=== PATIENT | male | born 1960 | race Caucasian/White ===

== ENCOUNTER → 2017-05-08 | Outpatient (CLI) | payer MEDICARE, OTHER ==
--- NOTE | 2017-05-08 09:23 | US ---
EXAMINATION TYPE: US carotid duplex BILAT DATE OF EXAM: 05/08/2017 COMPARISON: NONE CLINICAL HISTORY: R55 syncope. EXAM MEASUREMENTS: RIGHT: Peak Systolic Velocity (PSV) cm/sec ----- Right CCA: 79.1 ----- Right ICA: 93.0 ----- Right ECA: 66.4 ICA/CCA ratio: 1.2 RIGHT: End Diastole cm/sec ----- Right CCA: 18.4 ----- Right ICA: 29.8 ----- Right ECA: 9.6 LEFT: Peak Systolic Velocity (PSV) cm/sec ----- Left CCA: 64.3 ----- Left ICA: 108.6 ----- Left ECA: 77.8 ICA/CCA ratio: 1.7 LEFT: End Diastole cm/sec ----- Left CCA: 15.0 ----- Left ICA: 39.2 ----- Left ECA: 9.5 VERTEBRALS (direction of flow): Right Vertebral: Antegrade Left Vertebral: Antegrade Rhythm: Normal Minimal amount of plaque visualized. No elevated velocities, no significant stenosis IMPRESSION: 1. Minimal plaquing without significant flow-limiting stenosis. Criteria for Assigning % of Stenosis / Diameter reduction (Estimation based on the indirect measurements of the internal carotid artery velocities (ICA PSV). 1. Normal (no stenosis)=ICA PSV < 125 cm/s: ratio < 2.0: ICA EDV<40 cm/s. 2. Less than 50% stenosis=ICA PSV < 125 cm/s: ratio < 2.0: ICA EDV<40 cm/s. 3. 50 to 69% stenosis=ICA PSV of 125 to 230 cm/s: ration 2.0 ? 4.0: ICA EDV 40-100 cm/s. 4. Greater than 70% stenosis to near occlusion= ICA PSV > 230 cm/s: ratio > 4.0: ICA EDV > 100 cm/s. 5. Near occlusion= ICA PSV velocities may be low or undetectable: variable ratio and ICA EDV. 6. Total occlusion=unable to detect flow.
--- NOTE | 2017-05-08 09:30 | CT ---
EXAMINATION TYPE: CT brain wo con DATE OF EXAM: 05/08/2017 HISTORY: Syncope CT DLP: 1121 mGycm. Automated Exposure Control for Dose Reduction was Utilized. TECHNIQUE: CT scan of the head is performed without contrast. COMPARISON: None. FINDINGS: There is no acute intracranial hemorrhage or midline shift identified. Ventricles and sul ci are normal in size. Galan-white matter differentiation is fairly well preserved. There is completel y opacified left sphenoid sinus. There is 1 cm mucous retention cyst or polyp in superior portion of left maxillary sinus. The globes are intact bilaterally. No suspicious opacification mastoid air ce lls is seen. IMPRESSION: No acute intracranial hemorrhage or midline shift. Possible left sphenoid acute sinusiti s, correlate clinically.
== END | disposition home or self-care (01) ==
LOC: RADCTMAIN 07:57 → EEVIPCON 08:00
PROVIDERS: ATTEND Family Medicine
DX: I65.23 Occlusion and stenosis of bilateral carotid arteries (principal); R55 Syncope and collapse
CPT/HCPCS: 70450; 93880

== ENCOUNTER 2021-04-17 07:44 | Day surgery (SDC) | payer MEDICARE, OTHER ==
[2021-03-29 13:46] VITALS: BMI 21.7
[~2021-04-17 07:44] MED LIST: DEXAMETHASONE SOD PHOSPHATE 4 MG/ML 1 ML VIAL IV ONE; HYDROmorphone 0.5 MG/0.5 ML SYRINGE IVP PRN; LACTATED RINGERS 1,000 ML IV SCH; LIDOCAINE 1% (10MG/ML) FOR IV START INTRADERMA PRN; ONDANSETRON 4 MG/2 ML VIAL IVP ONE
[2021-04-17 08:17] VITALS: TEMP 97.9
[2021-04-17] MEDS ORDERED: PROPOFOL 10 MG/ML 20 ML VIAL IV ONE (09:22)
[2021-04-17] MEDS ORDERED: GLYCOPYRROLATE 0.2 MG/ML 2 ML VIAL ONE (09:22)
[2021-04-17] MEDS ORDERED: LIDOCAINE 1% INJ 10MG/ML (20 ML MDV) ONE (09:22)
--- NOTE | 2021-04-17 09:26 | P.GSHP ---
History of Present Illness H&P Date: 04/17/21 Chief Complaint: Colon cancer screening Patient here for colonoscopy. Patient without complaints. Patient is learning disabled. Most of history obtained from chart. Past Medical History Past Medical History: No Reported History Additional Past Medical History / Comment(s): Enlarged heart, due to have stress test and holter monitor. Autistic. History of Any Multi-Drug Resistant Organisms: None Reported Past Surgical History: No Surgical Hx Reported Additional Past Surgical History / Comment(s): Colonoscopy. Past Anesthesia/Blood Transfusion Reactions: No Reported Reaction Smoking Status: Never smoker - Past Family History Father Family Medical History: Renal Disease Additional Family Medical History / Comment(s): Renal Failure. Mother Family Medical History: Congestive Heart Failure (CHF) Medications and Allergies Home Medications Medication Instructions Recorded Confirmed Type Aspirin [Adult Low Dose Aspirin EC] 81 mg PO [facility] 03/29/21 04/17/21 History Bumetanide 2 mg PO [facility] 03/29/21 04/17/21 History Calcium Citrate/Vitamin D3 2 each PO [facility] 03/29/21 04/17/21 History [Citracal + D Maximum Caplet] Cetirizine HCl 10 mg PO 03/29/21 04/17/21 History Cholecalciferol [Vitamin D3 (25 25 mcg PO [facility] 03/29/21 04/17/21 History Mcg = 1000 Iu)] Omeprazole 20 mg PO [facility] 03/29/21 04/17/21 History Potassium Chloride ER [K-Dur 20] 20 meq PO [facility] 03/29/21 04/17/21 History QUEtiapine [SEROquel] 200 mg PO 03/29/21 04/17/21 History Allergies Allergy/AdvReac Type Severity Reaction Status Date / Time No Known Allergies Allergy Verified 04/17/21 08:07 Surgical - Exam Vital Signs Temp Pulse Resp BP Pulse Ox 97.9 F 59 L 18 149/78 99 04/17/21 08:16 04/17/21 08:16 04/17/21 08:16 04/17/21 08:16 04/17/21 08:16 Physical exam: General: Well-developed, well-nourished HEENT: Normocephalic, sclerae nonicteric Abdomen: Nontender, nondistended Extremities: No edema Neuro: Alert and oriented Assessment and Plan (1) Colon cancer screening Narrative/Plan: Will proceed with colonoscopy Current Visit: Yes Status: Acute Code(s): Z12.11 - ENCOUNTER FOR SCREENING FOR MALIGNANT NEOPLASM OF COLON SNOMED Code(s): 939584646
--- NOTE | 2021-04-17 09:46 | P.PCN ---
Date of Procedure: 04/17/21 Procedure(s) Performed: PREOPERATIVE DIAGNOSIS: Colon cancer screening POSTOPERATIVE DIAGNOSIS: Diverticulosis PROCEDURE: Colonoscopy ANESTHESIA: MAC SURGEON: Augustine Nava M.D. SPECIMENS: None ENDOSCOPIC PROCEDURE: The patient was placed on the endoscopy table in the left decubitus position. The Olympus colonoscope was inserted into the anus and passed under direct visualization to the base of the cecum. The appendiceal orifice was visualized. From that point the scope was slowly withdrawn inspe cting all surfaces carefully. There were no neoplastic inflammatory or polypoid lesions throughout the cecum, ascending, transverse, descending, sigmoid and rectum. There was moderate scattered diverticulosis noted. Digital rectal examination was normal. The patient was taken to the recovery room in stable condition per anesthesia guidelines. RECOMMENDATIONS: Resume diet. Follow colonoscopy in 10 years.
[2021-04-17 10:14] VITALS: BP 123/78; PULSE 67; RESP 18
== END 2021-04-17 10:29 | disposition home or self-care (01) ==
LOC: ORWHC2ENDO 07:44
PROVIDERS: ATTEND Surgery
DX: Z12.11 Encounter for screening for malignant neoplasm of colon (principal); F84.0 Autistic disorder; I10 Essential (primary) hypertension; K21.9 Gastro-esophageal reflux disease without esophagitis; Z79.82 Long term (current) use of aspirin; Z79.899 Other long term (current) drug therapy; Z82.49 Family history of ischemic heart disease and other diseases of the circulatory system
CPT/HCPCS: G0121; J2001; J2704

== ENCOUNTER 2023-08-13 18:31 | Emergency (ER) | payer MEDICARE, OTHER ==
[2023-08-13 19:13] VITALS: BP 98/58; PULSE 68; RESP 18; TEMP 101.4
[2023-08-13 19:52] LABS: Appearance,Urine Cloudy (Clear); Bacteria,Urine Many /hpf; Bilirubin,Urine Negative (Negative); Blood,Urine Moderate (Negative); Color,Urine Light Yellow; Glucose,Urine (UA) Negative (Negative); Ketones,Urine Negative (Negative); Leukocyte Esterase,Urine Large (Negative); Mucus,Urine Occasional /hpf; Nitrite,Urine Negative (Negative); Protein,Urine 1+ (Negative); RBC,Urine 12 /hpf (0-5); Specific Gravity,Urine 1.016 (1.001-1.035); Squamous Epithelial Cell,Urine 1 /hpf (0-4); Urobilinogen,Urine <2.0 mg/dL (<2.0); WBC,Urine >182 /hpf (0-5)
== END 2023-08-13 20:20 | disposition left against medical advice (07) ==
LOC: EC 18:31
DX: R46.89 Other symptoms and signs involving appearance and behavior (principal); Z53.21 Procedure and treatment not carried out due to patient leaving prior to being seen by health care provider
CPT/HCPCS: 81001; 99499

== ENCOUNTER 2024-02-10 20:42 | Inpatient (IN) | payer MEDICARE, OTHER ==
--- NOTE | 2024-02-10 21:04 | ED ---
Altered Mental Status HPI - General Chief Complaint: Altered Mental Status Stated Complaint: Fall,Sweating Time Seen by Provider: 02/10/24 21:01 Source: family Mode of arrival: ambulatory Limitations: altered mental status - History of Present Illness Initial Comments: This patient is a 63-year-old man who is brought in to have evaluation for altered mental status. The patient reportedly has some developmental delay and lives with cousin who does help with history. Family heard a noise and when they checked found he had fall in bathroom. Unsure if lost consciousness. Patient reportedly last known well before 8 PM. The patient himself is tending to babble currently but when asked focused questions is able to answer. He denies having pains. He denies dyspnea. MD Complaint: altered mental status Onset/Timin -: hour(s) Severity: moderate Consistency of Symptoms: constant - Related Data Home Medications Medication Instructions Recorded Confirmed Aspirin [Adult Low Dose Aspirin EC] 81 mg PO QAM 03/29/21 02/10/24 Calcium Citrate/Vitamin D3 2 each PO M 03/29/21 02/10/24 [Citracal + D Maximum Caplet] Cetirizine HCl 10 mg PO HS 03/29/21 02/10/24 Cholecalciferol [Vitamin D3 (25 10 mcg PO QAM 03/29/21 02/10/24 Mcg = 1000 Iu)] Omeprazole 20 mg PO QAM 03/29/21 02/10/24 Potassium Chloride ER [K-Dur 20] 20 meq PO QAM 03/29/21 02/10/24 QUEtiapine [SEROquel] 300 mg PO HS 03/29/21 02/10/24 Citalopram Hydrobromide 20 mg PO QAM 02/10/24 02/10/24 [Citalopram HBr] Empagliflozin [Jardiance] 10 mg PO QAM 02/10/24 02/10/24 Furosemide [Lasix] 40 mg PO DAILY 02/10/24 02/10/24 Nitroglycerin Sl Tabs [Nitrostat] 0.4 mg SUBLINGUAL Q5M PRN 02/10/24 02/10/24 Allergies Allergy/AdvReac Type Severity Reaction Status Date / Time No Known Allergies Allergy Verified 02/10/24 20:51 Review of Systems ROS Statement: Those systems with pertinent positive or pertinent negative responses have been documented in the HPI. ROS Other: All systems not noted in ROS Statement are negative. Limitations: ROS unobtainable due to patients medical condition Constitutional: Denies: fever Respiratory: Denies: cough Cardiovascular: Denies: chest pain Gastrointestinal: Denies: abdominal pain, vomiting Musculoskeletal: Denies: back pain Neurological: Denies: headache Past Medical History Past Medical History: Myocardial Infarction ([place]) Additional Past Medical History / Comment(s): swelling arina legs,cousin states "has weak heart working at 30%-35%",increased fatigue, Autistic-"will always state he is feeling fine", cousin Ankur is caregiver,lives with Ankur Last Myocardial Infarction Date:: unk History of Any Multi-Drug Resistant Organisms: None Reported Past Surgical History: No Surgical Hx Reported Additional Past Surgical History / Comment(s): Colonoscopy. Past Anesthesia/Blood Transfusion Reactions: No Reported Reaction Past Psychological History: Anxiety Smoking Status: Never smoker Past Alcohol Use History: None Reported Past Drug Use History: None Reported - Past Family History Father Family Medical History: Diabetes Mellitus, Renal Disease Additional Family Medical History / Comment(s): Renal Failure. Mother Family Medical History: Congestive Heart Failure (CHF) General Exam Limitations: altered mental status General appearance: alert, in no apparent distress Head exam: Present: atraumatic, normocephalic Eye exam: Present: normal appearance, PERRL, EOMI. Absent: scleral icterus, conjunctival injection, nystagmus ENT exam: Present: mucous membranes dry Neck exam: Present: normal inspection, full ROM. Absent: tenderness, meningismus Respiratory exam: Present: normal lung sounds bilaterally. Absent: respiratory distress, wheezes, rales, rhonchi, stridor, accessory muscle use Cardiovascular Exam: Present: regular rate, normal rhythm, normal heart sounds. Absent: systolic murmur, diastolic murmur, rubs, gallop GI/Abdominal exam: Present: soft. Absent: distended, tenderness, guarding, rebound, rigid, mass Extremities exam: Present: normal inspection, normal capillary refill. Absent: pedal edema, calf tenderness Back exam: Present: normal inspection. Absent: CVA tenderness (R), CVA tenderness (L) Neurological exam: Present: alert, CN II-XII intact. Absent: motor sensory deficit Expanded Neurological exam: Present: protecting the airway. Absent: ataxia, tremor Speech: Present: fluid speech Cranial nerves: EOM's Intact: Normal, Tongue Deviation: Normal Sensory exam: Upper Extremity Light Touch: Normal, Lower Extremity Light Touch: Normal Motor strength exam: RUE: 5, LUE: 5, RLE: 5, LLE: 5 Eye Response: (4) open spontaneously Motor Response: (6) obeys commands Verbal Response: (5) oriented Skin exam: Present: warm, dry, intact, normal color. Absent: rash Course Vital Signs 02/10/24 02/10/24 02/10/24 20:45 21:20 23:42 Temperature 98.2 F Pulse Rate 66 64 58 L Respiratory 22 18 16 Rate Blood Pressure 127/74 130/80 124/86 O2 Sat by Pulse 98 100 100 Oximetry Medical Decision Making - Medical Decision Making The patient had chest x-ray that I interpreted as negative for acute infiltrate, pneumothorax, congestive heart failure. Patient had CT of the brain that I interpreted as negative for acute intracranial hemorrhage. - Lab Data Result diagrams: 02/10/24 20:52 02/10/24 20:52 Lab Results 02/10/24 02/10/24 02/10/24 Range/Units 20:52 20:52 20:52 WBC 5.5 (3.8-10.6) k/uL RBC 3.87 L (4.30-5.90) m/uL Hgb 11.9 L (13.0-17.5) gm/dL Hct 35.1 L (39.0-53.0) % MCV 90.8 (80.0-100.0) fL MCH 30.8 (25.0-35.0) pg MCHC 34.0 (31.0-37.0) g/dL RDW 13.4 (11.5-15.5) % Plt Count 160 (150-450) k/uL MPV 7.4 Neutrophils % 62 % Lymphocytes % 26 % Monocytes % 9 % Eosinophils % 1 % Basophils % 0 % Neutrophils # 3.4 (1.3-7.7) k/uL Lymphocytes # 1.4 (1.0-4.8) k/uL Monocytes # 0.5 (0-1.0) k/uL Eosinophils # 0.1 (0-0.7) k/uL Basophils # 0.0 (0-0.2) k/uL PT 11.6 (10.0-12.5) sec INR 1.1 (<1.2) APTT 26.1 (22.0-30.0) sec Sodium 115 L* (137-145) mmol/L Potassium 3.4 L (3.5-5.1) mmol/L Chloride 85 L (98-107) mmol/L Carbon Dioxide 22 (22-30) mmol/L Anion Gap 8 mmol/L BUN 36 H (9-20) mg/dL Creatinine 1.40 H (0.66-1.25) mg/dL Est GFR (CKD-EPI)AfAm 61 (>60 ml/min/1.73 sqM) Est GFR (CKD-EPI)NonAf 53 (>60 ml/min/1.73 sqM) Glucose 112 H (74-99) mg/dL POC Glucose (mg/dL) (70-110) mg/dL POC Glu [employer] Techn[employer] ID Calcium 8.4 (8.4-10.2) mg/dL Total Bilirubin 0.9 (0.2-1.3) mg/dL AST 38 (17-59) U/L ALT 10 (4-49) U/L Alkaline Phosphatase 93 (38-126) U/L Ammonia (<30) umol/L Troponin I (0.000-0.034) ng/mL Total Protein 6.2 L (6.3-8.2) g/dL Albumin 3.8 (3.5-5.0) g/dL Urine Color Urine Appearance (Clear) Urine pH (5.0-8.0) Ur Specific [place] (1.001-1.035) Urine Protein (Negative) Urine Glucose (UA) (Negative) Urine Ketones (Negative) Urine Blood (Negative) Urine Nitrite (Negative) Urine Bilirubin (Negative) Urine Urobilinogen (<2.0) mg/dL Ur Leukocyte Esterase (Negative) Urine Opiates Screen (NotDetected) Ur Oxycodone Screen (NotDetected) Urine Methadone Screen (NotDetected) Ur Barbiturates Screen (NotDetected) U Tricyclic Antidepress (NotDetected) Ur Phencyclidine Scrn (NotDetected) Ur Amphetamines Screen (NotDetected) U Methamphetamines Scrn (NotDetected) U Benzodiazepines Scrn (NotDetected) Urine Cocaine Screen (NotDetected) U Marijuana (THC) Screen (NotDetected) Serum Alcohol <10 mg/dL 02/10/24 02/10/24 02/10/24 Range/Units 20:52 20:52 21:16 WBC (3.8-10.6) k/uL RBC (4.30-5.90) m/uL Hgb (13.0-17.5) gm/dL Hct (39.0-53.0) % MCV (80.0-100.0) fL MCH (25.0-35.0) pg MCHC (31.0-37.0) g/dL RDW (11.5-15.5) % Plt Count (150-450) k/uL MPV Neutrophils % % Lymphocytes % % Monocytes % % Eosinophils % % Basophils % % Neutrophils # (1.3-7.7) k/uL Lymphocytes # (1.0-4.8) k/uL Monocytes # (0-1.0) k/uL Eosinophils # (0-0.7) k/uL Basophils # (0-0.2) k/uL PT (10.0-12.5) sec INR (<1.2) APTT (22.0-30.0) sec Sodium (137-145) mmol/L Potassium (3.5-5.1) mmol/L Chloride (98-107) mmol/L Carbon Dioxide (22-30) mmol/L Anion Gap mmol/L BUN (9-20) mg/dL Creatinine (0.66-1.25) mg/dL Est GFR (CKD-EPI)AfAm (>60 ml/min/1.73 sqM) Est GFR (CKD-EPI)NonAf (>60 ml/min/1.73 sqM) Glucose (74-99) mg/dL POC Glucose (mg/dL) 121 H (70-110) mg/dL POC Glu [employer] Techn[employer] ID Darryl Michelle Calcium (8.4-10.2) mg/dL Total Bilirubin (0.2-1.3) mg/dL AST (17-59) U/L ALT (4-49) U/L Alkaline Phosphatase (38-126) U/L Ammonia <9 (<30) umol/L Troponin I 0.018 (0.000-0.034) ng/mL Total Protein (6.3-8.2) g/dL Albumin (3.5-5.0) g/dL Urine Color Urine Appearance (Clear) Urine pH (5.0-8.0) Ur Specific [place] (1.001-1.035) Urine Protein (Negative) Urine Glucose (UA) (Negative) Urine Ketones (Negative) Urine Blood (Negative) Urine Nitrite (Negative) Urine Bilirubin (Negative) Urine Urobilinogen (<2.0) mg/dL Ur Leukocyte Esterase (Negative) Urine Opiates Screen (NotDetected) Ur Oxycodone Screen (NotDetected) Urine Methadone Screen (NotDetected) Ur Barbiturates Screen (NotDetected) U Tricyclic Antidepress (NotDetected) Ur Phencyclidine Scrn (NotDetected) Ur Amphetamines Screen (NotDetected) U Methamphetamines Scrn (NotDetected) U Benzodiazepines Scrn (NotDetected) Urine Cocaine Screen (NotDetected) U Marijuana (THC) Screen (NotDetected) Serum Alcohol mg/dL 02/10/24 02/10/24 Range/Units 22:46 22:46 WBC (3.8-10.6) k/uL RBC (4.30-5.90) m/uL Hgb (13.0-17.5) gm/dL Hct (39.0-53.0) % MCV (80.0-100.0) fL MCH (25.0-35.0) pg MCHC (31.0-37.0) g/dL RDW (11.5-15.5) % Plt Count (150-450) k/uL MPV Neutrophils % % Lymphocytes % % Monocytes % % Eosinophils % % Basophils % % Neutrophils # (1.3-7.7) k/uL Lymphocytes # (1.0-4.8) k/uL Monocytes # (0-1.0) k/uL Eosinophils # (0-0.7) k/uL Basophils # (0-0.2) k/uL PT (10.0-12.5) sec INR (<1.2) APTT (22.0-30.0) sec Sodium (137-145) mmol/L Potassium (3.5-5.1) mmol/L Chloride (98-107) mmol/L Carbon Dioxide (22-30) mmol/L Anion Gap mmol/L BUN (9-20) mg/dL Creatinine (0.66-1.25) mg/dL Est GFR (CKD-EPI)AfAm (>60 ml/min/1.73 sqM) Est GFR (CKD-EPI)NonAf (>60 ml/min/1.73 sqM) Glucose (74-99) mg/dL POC Glucose (mg/dL) (70-110) mg/dL POC Glu [employer] Techn[employer] ID Calcium (8.4-10.2) mg/dL Total Bilirubin (0.2-1.3) mg/dL AST (17-59) U/L ALT (4-49) U/L Alkaline Phosphatase (38-126) U/L Ammonia (<30) umol/L Troponin I (0.000-0.034) ng/mL Total Protein (6.3-8.2) g/dL Albumin (3.5-5.0) g/dL Urine Color Colorless Urine Appearance Clear (Clear) Urine pH 6.0 (5.0-8.0) Ur Specific [place] 1.004 (1.001-1.035) Urine Protein Negative (Negative) Urine Glucose (UA) Negative (Negative) Urine Ketones Negative (Negative) Urine Blood Negative (Negative) Urine Nitrite Negative (Negative) Urine Bilirubin Negative (Negative) Urine Urobilinogen <2.0 (<2.0) mg/dL Ur Leukocyte Esterase Negative (Negative) Urine Opiates Screen Not Detected (NotDetected) Ur Oxycodone Screen Not Detected (NotDetected) Urine Methadone Screen Not Detected (NotDetected) Ur Barbiturates Screen Not Detected (NotDetected) U Tricyclic Antidepress Detected H (NotDetected) Ur Phencyclidine Scrn Not Detected (NotDetected) Ur Amphetamines Screen Not Detected (NotDetected) U Methamphetamines Scrn Not Detected (NotDetected) U Benzodiazepines Scrn Not Detected (NotDetected) Urine Cocaine Screen Not Detected (NotDetected) U Marijuana (THC) Screen Not Detected (NotDetected) Serum Alcohol mg/dL - EKG Data -: EKG Interpreted by Nd EKG shows normal: sinus rhythm (With sinus arrhythmia, rate 65 bpm), intervals (KS interval 176 ms, QTc 427 ms, both normal. QRS duration is 133 ms, prolonged consistent with intraventricular conduction delay.), QRS complexes (Intraventricular conduction delay. Probable old septal infarct based on Q waves V1 V2.) Rate: normal (Normal) Disposition Referrals: Song Burr DO [Primary Care Provider] - 1-2 days
[2024-02-10 21:17] LABS: Glucose,Whole Blood 121 mg/dL (70-110)
[2024-02-10 21:54] LABS: ALT 10 U/L (4-49); AST 38 U/L (17-59); African American GFR (CKD) 61 (>60 ml/min/1.73 sqM); Albumin 3.8 g/dL (3.5-5.0); Alcohol <10 mg/dL; Alkaline Phosphatase 93 U/L (38-126); Anion Gap 8 mmol/L; Blood Urea Nitrogen 36 mg/dL (9-20); Calcium 8.4 mg/dL (8.4-10.2); Carbon Dioxide 22 mmol/L (22-30); Chloride 85 mmol/L (98-107); Glucose 112 mg/dL (74-99); Non-African American GFR(CKD) 53 (>60 ml/min/1.73 sqM); Potassium 3.4 mmol/L (3.5-5.1); Total Bilirubin 0.9 mg/dL (0.2-1.3); Total Protein 6.2 g/dL (6.3-8.2)
[2024-02-10 21:59] LABS: INR 1.1 (<1.2); Partial Thromboplastin Time 26.1 sec (22.0-30.0); Prothrombin Time 11.6 sec (10.0-12.5)
--- NOTE | 2024-02-10 22:02 | XR ---
EXAMINATION TYPE: XR chest 2V DATE OF EXAM: 02/10/2024 9:47 PM CLINICAL INDICATION:Male, 63 years old with history of altered mental status; PH[facility] COMPARISON: None. TECHNIQUE: XR chest 2V Frontal and lateral views of the chest. FINDINGS: Lungs/Pleura: There is no evidence of pleural effusion, focal consolidation, or pneumothorax. Pulmonary vascularity: Possible mild pulmonary venous congestion. There seems to be cephalization of pulmonary venous flow. Heart/mediastinum: Heart is mildly enlarged. Musculoskeletal: No acute osseous pathology. Other findings: None Lines/Tubes: IMPRESSION: Possible mild congestive heart failure, correlate with BNP
[2024-02-10] MEDS: SODIUM CHLORIDE 0.9% 500 ML 500 ML IV ONE (22:06)
[2024-02-10 22:14] LABS: Basophils % (A) 0 %; Eosinophils # (A) 0.1 k/uL (0-0.7); Eosinophils % (A) 1 %; HCT 35.1 % (39.0-53.0); HGB 11.9 gm/dL (13.0-17.5); Lymphocytes # (A) 1.4 k/uL (1.0-4.8); Lymphocytes % (A) 26 %; MCH 30.8 pg (25.0-35.0); MCV 90.8 fL (80.0-100.0); Mean Platelet Volume 7.4; Monocytes # (A) 0.5 k/uL (0-1.0); Monocytes % (A) 9 %; Neutrophils # (A) 3.4 k/uL (1.3-7.7); Neutrophils % (A) 62 %; Platelet Count 160 k/uL (150-450); RBC 3.87 m/uL (4.30-5.90); RDW 13.4 % (11.5-15.5); WBC 5.5 k/uL (3.8-10.6)
[2024-02-10 22:20] LABS: Sodium 115 mmol/L (137-145)
[2024-02-10 23:01] LABS: Appearance,Urine Clear (Clear); Bilirubin,Urine Negative (Negative); Blood,Urine Negative (Negative); Color,Urine Colorless; Glucose,Urine (UA) Negative (Negative); Ketones,Urine Negative (Negative); Leukocyte Esterase,Urine Negative (Negative); Nitrite,Urine Negative (Negative); Protein,Urine Negative (Negative); Specific Gravity,Urine 1.004 (1.001-1.035); Urobilinogen,Urine <2.0 mg/dL (<2.0)
--- NOTE | 2024-02-10 23:39 | CT ---
EXAMINATION TYPE: CT brain wo con CT DLP: 1095.5 mGycm, Automated exposure control for dose reduction was used. DATE OF EXAM: 02/10/2024 11:18 PM COMPARISON: 05/08/2017. CLINICAL INDICATION:Male, 63 years old with history of Altered mental status, family reports pt has b een disoriented for the last hour states he was in the bathroom and they heard him fall, no obvious s igns of trauma scheduled angiogram tmrw TECHNIQUE: Brain: Axial CT images of the brain were obtained with coronal and sagittal reformats created and rev iewed. Contrast used: None. Oral contrast used: None. FINDINGS: Brain: Extra-axial spaces: No abnormal extra-axial fluid collections. Ventricular system: Within normal limits Cerebral parenchyma: No acute intraparenchymal hemorrhage or mass effect. The laguerre-white junction is well differentiated. Cerebellum: Unremarkable. Mass effect: No evidence of midline shift. Intracranial vasculature: unremarkable Soft tissues: Normal. Calvarium/osseous structures: No depressed skull fracture. Paranasal sinuses and mastoid air cells: Mild scattered paranasal sinus disease most pronounced in th e left sphenoid sinus with near complete opacification. Visualized orbits: Orbital contents are intac t. IMPRESSION: No acute intracranial process.
[2024-02-11 00:01] LABS: Amphetamine Screen,Urine Not Detected (NotDetected); Barbiturate Screen,Urine Not Detected (NotDetected); Benzodiazepines Screen,Urine Not Detected (NotDetected); Cocaine Screen,Urine Not Detected (NotDetected); Methadone Screen, Urine Not Detected (NotDetected); Opiate Screen,Urine Not Detected (NotDetected); Oxycodone Screen, Urine Not Detected (NotDetected); Phencyclidine Screen,Urine Not Detected (NotDetected); Tricyclic Antidepressant,Urine Detected (NotDetected); Urn Cannabinoid Scrn Not Detected (NotDetected)
[2024-02-11] MEDS ORDERED: NALOXONE 0.4 MG/ML 1 ML VIAL IV PRN (00:07)
[2024-02-11] MEDS: SODIUM CHLORIDE 0.9% 1,000 ML IV SCH ×2 (03:13→17:45)
[2024-02-11 06:42] LABS: ALT 12 U/L (4-49); AST 77 U/L (17-59); African American GFR (CKD) 71 (>60 ml/min/1.73 sqM); Albumin 3.9 g/dL (3.5-5.0); Alkaline Phosphatase 52 U/L (38-126); Anion Gap 5 mmol/L; Blood Urea Nitrogen 32 mg/dL (9-20); Carbon Dioxide 23 mmol/L (22-30); Chloride 88 mmol/L (98-107); Glucose 110 mg/dL (74-99); Non-African American GFR(CKD) 62 (>60 ml/min/1.73 sqM); Total Bilirubin 2.2 mg/dL (0.2-1.3); Total Protein 6.5 g/dL (6.3-8.2)
[2024-02-11 07:03] LABS: Potassium 5.4 mmol/L (3.5-5.1); Sodium 116 mmol/L (137-145)
[2024-02-11] MEDS: ASPIRIN 325 MG TAB PO ONE (07:34)
[2024-02-11] MEDS: SODIUM CHLORIDE 0.9% 1,000 ML IV ONE (07:34)
[2024-02-11] MEDS: ATORVASTATIN 80 MG TAB PO ONE (07:34)
[2024-02-11] MEDS: fentaNYL (PF) 50 MCG/ML 2 ML AMP IVP ONE (08:03)
[2024-02-11] MEDS: LIDOCAINE 1% INJ 10MG/ML (20 ML MDV) SQ ONE (08:04)
[2024-02-11] MEDS: MIDAZOLAM 2 MG/2 ML VIAL IVP ONE (08:06)
[2024-02-11] MEDS: VERAPAMIL SYRINGE (5 MG/10 ML) INTRAARTER ONE (08:07)
[2024-02-11] MEDS: HEPARIN SODIUM 1,000 UN/ML (10ML VL) IVP ONE (08:10)
[2024-02-11] MEDS: IOPAMIDOL-370 100ML BTL IVP ONE (08:21)
--- NOTE | 2024-02-11 09:24 | P.CARDCATH ---
Description of Procedure: PROCEDURES PERFORMED: Left heart catheterization, bilateral coronary angiography, ultrasound guided arterial access INDICATION: Traore myopathy, syncope CONSENT:I have discussed the risks, benefits and alternative therapies for the above-mentioned procedure and for both sedation/analgesia as well as necessary blood product administration, if indicated, as they pertain to this patient. The patient's guardian has indicated understanding and acceptance of the risks and procedures discussed. HPI: patient had outpatient heart catheterization scheduled however while up in the hospital with a fall and was found to have significant hyponatremia. Per caregiver, guardian patient does drink excessive amounts of water. Patient curr ently back to his normal mental status and therefore deemed appropriate for heart catheterization. PROCEDURE: After the risks, benefits and alternatives of the above mentioned procedure explained in detail with the patient, informed consent was obtained. Patient was taken to the catheterization lab and prepped and draped in usual fashion. Ultrasound guidance was used to assess for arterial access. 1% lidocaine was used to anesthetize the right radial artery. A 6-Marshallese sheath was placed in the right radial artery using modified Seldinger technique and ultrasound guidance. Left coronary angiography was performed with a 5-Marshallese JL 3.5 catheter and right coronary angiography was performed with a 5-Marshallese FR5 catheter in various views. A 5-Marshallese FR5 catheter was inserted into the left ventricle and pressure measurements were obtained. The right radial sheath was removed and a TR band was placed with hemostasis achieved. The patient tolerated the procedure well. Patient was transported back to the post catheterization holding area in stable condition. Conscious Sedation: Patient was monitored under the direct supervision of myself for conscious sedation using Versed and fentanyl for a total duration of 11 minutes HEMODYNAMICS: Aorta: 144/72 LV: 140/5, LVEDP 10 SELECTIVE CORONARY ARTERIOGRAPHY: LEFT MAIN: The left main is a large caliber vessel which bifurcates into the LAD and circumflex. There is no significant stenosis. LEFT ANTERIOR DESCENDING CORONARY ARTERY: LAD is a large caliber vessel which wraps around to the apex. There are mild luminal irregularities with mid LAD 20% stenosis. LEFT CIRCUMFLEX CORONARY ARTERY: Left circumflex is a moderate caliber vessel with mild luminal irregularities RIGHT CORONARY ARTERY: The right coronary artery is a large caliber vessel which gives off a PDA and PLV branch and is the dominant vessel. There are mild luminal irregularities with mid RCA 10-20% stenosis. FINAL IMPRESSION: 1. Mild CAD as described above with 20% mid LAD, 10- 20% mid RCA stenosis 2. Normal left sided filling pressures PLAN: 1. Aggressive risk factor modification per most recent ACC/AHA guidelines. 2. Follow-up in the office in 1-2 weeks.
[2024-02-11] MEDS: FAMOTIDINE 20 MG TAB PO SCH (17:45)
[2024-02-11] MEDS: HEPARIN SODIUM,PORCINE 5,000 UNIT/ML 1 ML VIAL SQ SCH (17:46)
[2024-02-11 18:48] LABS: African American GFR (CKD) 46 (>60 ml/min/1.73 sqM); Anion Gap 5 mmol/L; Blood Urea Nitrogen 34 mg/dL (9-20); Calcium 8.5 mg/dL (8.4-10.2); Carbon Dioxide 27 mmol/L (22-30); Chloride 97 mmol/L (98-107); Glucose 87 mg/dL (74-99); Non-African American GFR(CKD) 40 (>60 ml/min/1.73 sqM); Sodium 129 mmol/L (137-145)
[2024-02-11] MEDS: QUEtiapine 100 MG TAB PO SCH (21:05)
[2024-02-11] MEDS: CITALOPRAM HYDROBROMIDE 20 MG TAB PO SCH (21:05)
[2024-02-11] MEDS: LORATADINE 10 MG TAB PO SCH (21:05)
[2024-02-11] MEDS: DEXTROSE 5% IN WATER 1,000 ML IV SCH (22:40)
--- NOTE | 2024-02-12 01:58 | P.HPIM ---
History of Present Illness H&P Date: 02/11/24 Chief Complaint: Altered mental status Patient is a 62-year-old male with known history of NH, autistic, anxiety and other medical problems was brought to the ER due to altered mental status. Patient does have developmental delay and lives with his cousin who helps with history. I currently discussed and patient has weak heart and ejection fraction was 30 to 35%. Patient has been having increasingly fatigue. Family heart and noise on the check found he had fallen in the bathroom. Unsure if he lost his consciousness or not.. Chest x-ray on admission showed possible mild congestive heart failure correlate with BNP EKG showed sinus rhythm with sinus arrhythmia CT head showed no acute intracranial process. Patient had outpatient heart catheterization scheduled however when he was found to have significant hyponatremia. As per caregiver patient does drink excess amount of water. Mentation was back to baseline. Patient had cardiac catheterization showed mild CAD with 20% mid LAD, 10 to 20% mid RCA stenosis. Normal left-sided filling pressures. Laboratory data showed WBC 5.1 hemoglobin 0.9 and platelets 160 sodium 115 chloride 85, potassium 3.4 BUN 36 and creatinine 1.4 and blood sugar 112 urinalysis is negative for infection. Patient was given IV hydration with normal saline. Review of Systems ROS unobtainable: due to mental status Past Medical History Past Medical History: Myocardial Infarction ([place]) Additional Past Medical History / Comment(s): swelling arina legs,cousin states "has weak heart working at 30%-35%",increased fatigue, Autistic-"will always state he is feeling fine", cousin Ankur is caregiver,lives with Ankur Last Myocardial Infarction Date:: unk History of Any Multi-Drug Resistant Organisms: None Reported Past Surgical History: No Surgical Hx Reported Additional Past Surgical History / Comment(s): Colonoscopy. Past Anesthesia/Blood Transfusion Reactions: No Reported Reaction Past Psychological History: Anxiety Smoking Status: Never smoker Past Alcohol Use History: None Reported Past Drug Use History: None Reported - Past Family History Father Family Medical History: Diabetes Mellitus, Renal Disease Additional Family Medical History / Comment(s): Renal Failure. Mother Family Medical History: Congestive Heart Failure (CHF) Medications and Allergies Home Medications Medication Instructions Recorded Confirmed Type Aspirin [Adult Low Dose Aspirin EC] 81 mg PO DAILY 03/29/21 02/11/24 History Calcium Citrate/Vitamin D3 2 tab PO DAILY 03/29/21 02/11/24 History [Citracal + D Maximum Caplet] Cetirizine HCl 10 mg PO HS 03/29/21 02/11/24 History Omeprazole 20 mg PO DAILY 03/29/21 02/11/24 History Potassium Chloride ER [K-Dur 20] 20 meq PO DAILY 03/29/21 02/11/24 History Citalopram Hydrobromide 20 mg PO DAILY 02/10/24 02/11/24 History [Citalopram HBr] Empagliflozin [Jardiance] 10 mg PO DAILY 02/10/24 02/11/24 History Furosemide [Lasix] 40 mg PO DAILY 02/10/24 02/11/24 History Nitroglycerin Sl Tabs [Nitrostat] 0.4 mg SL Q5M PRN 02/10/24 02/11/24 History Cholecalciferol [Vitamin D3 (10 10 mcg PO DAILY 02/11/24 02/11/24 History Mcg = 400 Iu)] QUEtiapine FUMARATE [SEROquel] 300 mg PO HS 02/11/24 02/11/24 History Allergies Allergy/AdvReac Type Severity Reaction Status Date / Time No Known Allergies Allergy Verified 02/10/24 20:51 Physical Exam Vitals: Vital Signs Temp Pulse Pulse Resp BP BP Pulse Ox 02/11/24 10:10 62 16 132/65 95 02/11/24 09:40 56 L 16 141/63 95 02/11/24 09:10 52 L 16 140/65 95 02/11/24 08:55 56 L 16 147/74 95 02/11/24 08:40 56 L 16 147/75 94 L 02/11/24 08:25 59 L 16 135/70 94 L 02/11/24 06:10 98.2 F 68 14 127/79 98 02/11/24 05:26 58 L 14 124/67 98 02/11/24 02:53 97.9 F 86 15 129/79 99 02/10/24 23:42 58 L 16 124/86 100 02/10/24 21:20 64 18 130/80 100 02/10/24 20:45 98.2 F 66 22 127/74 98 Intake and Output 02/10/24 02/11/24 02/11/24 22:59 06:59 14:59 Intake Total 440 Balance 440 Intake: IV 200 Oral 240 Other: # Voids 3 1 # Bowel Movements 1 Weight 68.492 kg PHYSICAL EXAMINATION: Patient is lying in the bed comfortably, no acute distress, awake alert and oriented 1-2.. HEENT: Normocephalic. Neck is supple. Pupils reactive. Nostrils clear. Oral cavity is moist. Neck reveals no JVD, carotid bruits, or thyromegaly. CHEST EXAMINATION: Trachea is central. Symmetrical expansion. Lung mobley clear to auscultation and percussion. CARDIAC: Normal S1, S2 with no gallops. No murmurs ABDOMEN: Soft. Bowel sounds normal. No organomegaly. No abdominal bruits. Extremities: reveal no edema. No clubbing or cyanosis Neurologically awake, alert, oriented x 1-2 able to move all extremities while in bed. Autistic. No gross focal deficits. Skin: No rash or skin lesions. Psychiatric: Coperative. Could not be assessed completely Musculoskeletal: No joint swelling or deformity. Results CBC & Chem 7: 02/13/24 07:30 02/13/24 07:30 Labs: Abnormal Lab Results - Last 24 Hours (Table) 02/10/24 02/10/24 02/10/24 Range/Units 20:52 20:52 21:16 RBC 3.87 L (4.30-5.90) m/uL Hgb 11.9 L (13.0-17.5) gm/dL Hct 35.1 L (39.0-53.0) % Sodium 115 L* (137-145) mmol/L Potassium 3.4 L (3.5-5.1) mmol/L Chloride 85 L (98-107) mmol/L BUN 36 H (9-20) mg/dL Creatinine 1.40 H (0.66-1.25) mg/dL Glucose 112 H (74-99) mg/dL POC Glucose (mg/dL) 121 H (70-110) mg/dL Calcium (8.4-10.2) mg/dL Total Bilirubin (0.2-1.3) mg/dL AST (17-59) U/L Total Protein 6.2 L (6.3-8.2) g/dL U Tricyclic Antidepress (NotDetected) 02/10/24 02/11/24 Range/Units 22:46 06:35 RBC (4.30-5.90) m/uL Hgb (13.0-17.5) gm/dL Hct (39.0-53.0) % Sodium 116 L* (137-145) mmol/L Potassium 5.4 H (3.5-5.1) mmol/L Chloride 88 L (98-107) mmol/L BUN 32 H (9-20) mg/dL Creatinine (0.66-1.25) mg/dL Glucose 110 H (74-99) mg/dL POC Glucose (mg/dL) (70-110) mg/dL Calcium 8.0 L (8.4-10.2) mg/dL Total Bilirubin 2.2 H (0.2-1.3) mg/dL AST 77 H (17-59) U/L Total Protein (6.3-8.2) g/dL U Tricyclic Antidepress Detected H (NotDetected) Thrombosis Risk Factor Assmnt - DVT/VTE Prophylaxis DVT/VTE Prophylaxis: Pharmacologic Prophylaxis ordered Assessment and Plan Assessment: Altered mental status and was found on the floor in the bathroom. Cardiomyopathy Ejection fraction 35% as per discussion. Status post cardiac catheterization on 02/11/2024 showed mild CAD. No PCI. Hyponatremia likely hypobulimic Acute kidney injury likely prerenal Mild hyperkalemia on admission resolved now GERD Autism and developmental delay DVT prophylaxis heparin subcu Plan: Patient was continued on IV hydration. Sodium went up to 126 and due to rapid correction IV fluids changed to D5 waer. Encourage oral intake. Nephrology was consulted. Bladder scan was ordered to blood urinary retention. Diuretics on hold. Farxica is on Hold as well. symptomatic management and follow-up closely. Prognosis is guarded. Time with Patient: Greater than 30
[2024-02-12 05:18] LABS: Basophils % (A) 0 %; Eosinophils % (A) 1 %; HCT 33.5 % (39.0-53.0); HGB 11.3 gm/dL (13.0-17.5); Lymphocytes # (A) 0.9 k/uL (1.0-4.8); Lymphocytes % (A) 18 %; MCH 30.6 pg (25.0-35.0); MCHC 33.6 g/dL (31.0-37.0); MCV 91.1 fL (80.0-100.0); Mean Platelet Volume 8.1; Monocytes # (A) 0.4 k/uL (0-1.0); Monocytes % (A) 9 %; Neutrophils # (A) 3.4 k/uL (1.3-7.7); Neutrophils % (A) 71 %; Platelet Count 136 k/uL (150-450); RBC 3.68 m/uL (4.30-5.90); RDW 14.1 % (11.5-15.5); WBC 4.8 k/uL (3.8-10.6)
[2024-02-12 05:32] LABS: African American GFR (CKD) 32 (>60 ml/min/1.73 sqM); Anion Gap 3 mmol/L; Blood Urea Nitrogen 36 mg/dL (9-20); Calcium 7.9 mg/dL (8.4-10.2); Carbon Dioxide 22 mmol/L (22-30); Chloride 102 mmol/L (98-107); Glucose 110 mg/dL (74-99); Non-African American GFR(CKD) 27 (>60 ml/min/1.73 sqM); Potassium 3.6 mmol/L (3.5-5.1); Sodium 127 mmol/L (137-145)
[2024-02-12] MEDS: PANTOPRAZOLE 40 MG TABLET PO SCH (06:31)
[2024-02-12] MEDS: ASPIRIN 81 MG PO SCH (08:16)
[2024-02-12] MEDS: DAPAGLIFLOZIN PROPANEDIOL 5 MG TABLET PO SCH (08:16)
[2024-02-12] MEDS ORDERED: NON FORMULARY DRUG (Omeprazole [Omeprazole] 20 MG Capsule) PO SCH (09:00)
--- NOTE | 2024-02-12 12:53 | P.NPCON ---
History of Present Illness - Reason for Consult hyponatremia - History of Present Illness Stephen is a 63 year old male with past medical history of coronary artery disease with a history of [place] admitted with altered mental status on 02/09. Patient has some developmental delay and lives with cousin. On admission, patient was found to have hyponatremia with a sodium level of 115. Patient was assessed this morning at bedside. He currently reports doing well, no complaints or concerns. No overnight events reported according to nurse. Patient has been eating, drinking, and sleeping fine. Patient denied fever, chills, chest pain, shortness of breath, stomach pain, diarrhea, constipation, dysuria. Patient received normal saline bolus in the ER and saline was continued at 130 cc/hr. Repeat sodium 12 hours later was 129, which is an increase of 13 units over 12 hours. This is a rapid increase. Saline was discontinued and patient was switched to D5W last night. Sodium this morning was 126. Serum creatinine has increased from 1.2 on initial admission to 2.4 today. Status postcardiac cath on 02/11/2024. This was planned as outpatient. Review of Systems All systems: negative Constitutional: Reports as per HPI, Denies chills, Denies fever Eyes: denies blurred vision, denies pain Ears, nose, mouth and throat: Denies headache, Denies sore throat Cardiovascular: Denies chest pain, Denies shortness of breath Respiratory: Denies cough Gastrointestinal: Denies abdominal pain, Denies diarrhea, Denies nausea, Denies vomiting Musculoskeletal: Denies myalgias Integumentary: Denies pruritus, Denies rash Neurological: Denies numbness, Denies weakness Psychiatric: Denies anxiety, Denies depression Endocrine: Denies fatigue, Denies weight change Past Medical History Past Medical History: Myocardial Infarction ([place]) Additional Past Medical History / Comment(s): swelling arina legs,cousin states "has weak heart working at 30%-35%",increased fatigue, Autistic-"will always state he is feeling fine", cousin Ankur is caregiver,lives with Ankur Last Myocardial Infarction Date:: unk History of Any Multi-Drug Resistant Organisms: None Reported Past Surgical History: No Surgical Hx Reported Additional Past Surgical History / Comment(s): Colonoscopy. Past Anesthesia/Blood Transfusion Reactions: No Reported Reaction Past Psychological History: Anxiety Smoking Status: Never smoker Past Alcohol Use History: None Reported Past Drug Use History: None Reported - Past Family History Father Family Medical History: Diabetes Mellitus, Renal Disease Additional Family Medical History / Comment(s): Renal Failure. Mother Family Medical History: Congestive Heart Failure (CHF) Medications and Allergies Home Medications Medication Instructions Recorded Confirmed Type Aspirin [Adult Low Dose Aspirin EC] 81 mg PO DAILY 03/29/21 02/11/24 History Calcium Citrate/Vitamin D3 2 tab PO DAILY 03/29/21 02/11/24 History [Citracal + D Maximum Caplet] Cetirizine HCl 10 mg PO HS 03/29/21 02/11/24 History Omeprazole 20 mg PO DAILY 03/29/21 02/11/24 History Potassium Chloride ER [K-Dur 20] 20 meq PO DAILY 03/29/21 02/11/24 History Citalopram Hydrobromide 20 mg PO DAILY 02/10/24 02/11/24 History [Citalopram HBr] Empagliflozin [Jardiance] 10 mg PO DAILY 02/10/24 02/11/24 History Furosemide [Lasix] 40 mg PO DAILY 02/10/24 02/11/24 History Nitroglycerin Sl Tabs [Nitrostat] 0.4 mg SL Q5M PRN 02/10/24 02/11/24 History Cholecalciferol [Vitamin D3 (10 10 mcg PO DAILY 02/11/24 02/11/24 History Mcg = 400 Iu)] QUEtiapine FUMARATE [SEROquel] 300 mg PO HS 02/11/24 02/11/24 History Allergies Allergy/AdvReac Type Severity Reaction Status Date / Time No Known Allergies Allergy Verified 02/10/24 20:51 Physical Exam Vitals: Vital Signs Temp Pulse Pulse Resp BP Pulse Ox 02/12/24 11:17 49 L 16 99/63 99 02/12/24 08:21 95 02/12/24 08:15 58 L 16 94/61 98 02/12/24 04:17 51 L 18 104/63 97 02/11/24 23:49 51 L 18 95/58 97 02/11/24 20:00 98.0 F 50 L 18 150/71 99 02/11/24 17:08 99.1 F 60 18 131/75 100 02/11/24 12:10 52 L 16 150/73 97 Intake and Output 02/11/24 02/12/24 02/12/24 22:59 06:59 14:59 Intake Total 428 180 Balance 428 180 Intake: IV 310 Invasive Line 4 10 Oral 118 180 Other: Voiding Method Toilet Toilet # Voids 1 1 Weight 68.492 kg 66 kg General: Awake, alert and oriented, not in acute distress, O X 1 Heart: Regular heart rate, no murmurs Lung: No crackles, CTAB, no wheezing Abdomen: Soft, non tender Extremities: 1+ left lower extremity piting edema, right leg no edema [employer]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 Results - Lab Results Most recent lab results Calcium 7.9 mg/dL (8.4-10.2) L 02/12/24 04:57 02/12/24 04:57 02/12/24 10:39 Assessment and Plan Assessment: 1. Hyponatremia - improve with normal saline, hypovolemic vs euvolemic, there was a rapid correction in the serum sodium level, therefore he is currently maintained on D5W. Goal of rate of increase is 8-10 over 24 hours. Most recent sodium was 126 at 10:30AM. Urine sodium less than 20, urine osmolality was 97. TSH was 1.5. History of increased fluid intake. 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 2. Acute kidney injury - Serum creatinine increased from 1.2 on admission to 2.4 today. May be due to low blood pressure. Hypotension was noted this morning. Rule out urinary retention. Farxiga was discontinued. UA was unremarkable. Need to check out bladder scan to rule out urinary retention. Status post cardiac catheterization 02/11/2024. 3. Mild hyperkalemia - Resolved. Potassium supplement on hold. 4. GERD - Maintained on omeprazole. 5. Coronary artery disease status postcardiac catheterization on 02/11/2024. This was scheduled previously as outpatient. Plan: 1. Discontinue D5W 2. Repeat sodium in 4 hours. 3. Check bladder scan to rule out urinary retention 4. Hold diuretics 5. Midodrine X 1. 6. Hold Farxiga 7. Repeat labs in AM Thank you for the consultation. We will continue to monitor the patient with you during this hospitalization. Patient is seen and examined with the resident. I agree with the resident's fi ndings, assessment and plan.
[2024-02-12] MEDS: MIDODRINE 5 MG TAB PO STA (13:07)
--- NOTE | 2024-02-12 16:43 | P.GSCN ---
History of Present Illness Consult date: 02/12/24 Reason for Consult: urinary retention History of present illness: This is a 63-year-old male with developmental delay admitted to the hospital with hyponatremia and altered mental status. Urology is consulted for urinary retention patient is a limited historian, does not complete history could not be obtained, but on review of chart no previous known history of urinary retention or urological issues. Bladder scan did show evidence of 500 mL, subsequently a Perez catheter was placed. In addition he is been having rising creatinine with creatinine of 2.4 this morning. His catheter is in place draining clear yellow urine Review of Systems ROS unobtainable: due to mental status Past Medical History Past Medical History: Myocardial Infarction ([place]) Additional Past Medical History / Comment(s): swelling arina legs,cousin states "h as weak heart working at 30%-35%",increased fatigue, Autistic-"will always state he is feeling fine", cousin Ankur is caregiver,lives with Ankur Last Myocardial Infarction Date:: unk History of Any Multi-Drug Resistant Organisms: None Reported Past Surgical History: No Surgical Hx Reported Additional Past Surgical History / Comment(s): Colonoscopy. Past Anesthesia/Blood Transfusion Reactions: No Reported Reaction Past Psychological History: Anxiety Smoking Status: Never smoker Past Alcohol Use History: None Reported Past Drug Use History: None Reported - Past Family History Father Family Medical History: Diabetes Mellitus, Renal Disease Additional Family Medical History / Comment(s): Renal Failure. Mother Family Medical History: Congestive Heart Failure (CHF) Medications and Allergies Home Medications Medication Instructions Recorded Confirmed Type Aspirin [Adult Low Dose Aspirin EC] 81 mg PO DAILY 03/29/21 02/11/24 History Calcium Citrate/Vitamin D3 2 tab PO DAILY 03/29/21 02/11/24 History [Citracal + D Maximum Caplet] Cetirizine HCl 10 mg PO HS 03/29/21 02/11/24 History Omeprazole 20 mg PO DAILY 03/29/21 02/11/24 History Potassium Chloride ER [K-Dur 20] 20 meq PO DAILY 03/29/21 02/11/24 History Citalopram Hydrobromide 20 mg PO DAILY 02/10/24 02/11/24 History [Citalopram HBr] Empagliflozin [Jardiance] 10 mg PO DAILY 02/10/24 02/11/24 History Furosemide [Lasix] 40 mg PO DAILY 02/10/24 02/11/24 History Nitroglycerin Sl Tabs [Nitrostat] 0.4 mg SL Q5M PRN 02/10/24 02/11/24 History Cholecalciferol [Vitamin D3 (10 10 mcg PO DAILY 02/11/24 02/11/24 History Mcg = 400 Iu)] QUEtiapine FUMARATE [SEROquel] 300 mg PO HS 02/11/24 02/11/24 History Allergies Allergy/AdvReac Type Severity Reaction Status Date / Time No Known Allergies Allergy Verified 02/10/24 20:51 Surgical - Exam Vital Signs Temp Pulse Resp BP Pulse Ox 98.2 F 66 22 127/74 98 02/10/24 20:45 02/10/24 20:45 02/10/24 20:45 02/10/24 20:45 02/10/24 20:45 - General no distress, no pain - ENT normal nares, normal mucosa - Respiratory normal expansion, normal respiratory effort - Abdomen Abdomen: soft, non tender, no distended Results - Labs 02/12/24 04:57 02/12/24 15:49 Abnormal Lab Results - Last 24 Hours (Table) 02/11/24 02/11/24 02/11/24 Range/Units 18:02 18:02 18:24 RBC (4.30-5.90) m/uL Hgb (13.0-17.5) gm/dL Hct (39.0-53.0) % Plt Count (150-450) k/uL Lymphocytes # (1.0-4.8) k/uL Sodium 129 L (137-145) mmol/L Chloride 97 L (98-107) mmol/L BUN 34 H (9-20) mg/dL Creatinine 1.77 H (0.66-1.25) mg/dL Glucose (74-99) mg/dL Calcium (8.4-10.2) mg/dL Urine Osmolality 97 L (400-1100) mOsm/kg Ur Random Sodium <20 L (40-220) mmol/L 02/12/24 02/12/24 02/12/24 Range/Units 04:57 04:57 10:39 RBC 3.68 L (4.30-5.90) m/uL Hgb 11.3 L (13.0-17.5) gm/dL Hct 33.5 L (39.0-53.0) % Plt Count 136 L (150-450) k/uL Lymphocytes # 0.9 L (1.0-4.8) k/uL Sodium 127 L 126 L (137-145) mmol/L Chloride (98-107) mmol/L BUN 36 H (9-20) mg/dL Creatinine 2.40 H (0.66-1.25) mg/dL Glucose 110 H (74-99) mg/dL Calcium 7.9 L (8.4-10.2) mg/dL Urine Osmolality (400-1100) mOsm/kg Ur Random Sodium (40-220) mmol/L Diabetes panel 02/11/24 02/12/24 02/12/24 Range/Units 18: 04:57 10:39 Sodium 129 L 127 L 126 L (137-145) mmol/L Potassium 4.0 3.6 (3.5-5.1) mmol/L Chloride 97 L 102 (98-107) mmol/L Carbon Dioxide 27 22 (22-30) mmol/L BUN 34 H 36 H (9-20) mg/dL Creatinine 1.77 H 2.40 H (0.66-1.25) mg/dL Glucose 87 110 H (74-99) mg/dL Calcium 8.5 7.9 L (8.4-10.2) mg/dL Thyroid panel 02/11/24 Range/Units 18:24 TSH 1.530 (0.465-4.680) mIU/L Calcium panel 02/11/24 02/12/24 Range/Units 18:24 04:57 Calcium 8.5 7.9 L (8.4-10.2) mg/dL Pituitary panel 02/11/24 02/12/24 02/12/24 Range/Units 18:24 04:57 10:39 Sodium 129 L 127 L 126 L (137-145) mmol/L Potassium 4.0 3.6 (3.5-5.1) mmol/L Chloride 97 L 102 (98-107) mmol/L Carbon Dioxide 27 22 (22-30) mmol/L BUN 34 H 36 H (9-20) mg/dL Creatinine 1.77 H 2.40 H (0.66-1.25) mg/dL Glucose 87 110 H (74-99) mg/dL Calcium 8.5 7.9 L (8.4-10.2) mg/dL TSH 1.530 (0.465-4.680) mIU/L Adrenal panel 02/11/24 02/12/24 02/12/24 Range/Units 18:24 04:57 10:39 Sodium 129 L 127 L 126 L (137-145) mmol/L Potassium 4.0 3.6 (3.5-5.1) mmol/L Chloride 97 L 102 (98-107) mmol/L Carbon Dioxide 27 22 (22-30) mmol/L BUN 34 H 36 H (9-20) mg/dL Creatinine 1.77 H 2.40 H (0.66-1.25) mg/dL Glucose 87 110 H (74-99) mg/dL Calcium 8.5 7.9 L (8.4-10.2) mg/dL Assessment and Plan Assessment: 63-year-old male with urinary retention, catheter placed for a postvoid residual of 500 mL. -Start Flomax -Recommend trial of void at time of discharge, catheter can stay out if his PVR is less than 400 mL
[2024-02-12] MEDS: TAMSULOSIN 0.4 MG CAP.ER.24H PO SCH (16:53)
[2024-02-13 08:05] LABS: Basophils % (A) 1 %; Eosinophils # (A) 0.1 k/uL (0-0.7); Eosinophils % (A) 1 %; HCT 38.4 % (39.0-53.0); HGB 12.5 gm/dL (13.0-17.5); Lymphocytes # (A) 1.2 k/uL (1.0-4.8); Lymphocytes % (A) 31 %; MCH 30.2 pg (25.0-35.0); MCHC 32.4 g/dL (31.0-37.0); MCV 93.2 fL (80.0-100.0); Mean Platelet Volume 7.7; Monocytes # (A) 0.3 k/uL (0-1.0); Monocytes % (A) 8 %; Neutrophils # (A) 2.3 k/uL (1.3-7.7); Neutrophils % (A) 57 %; Platelet Count 150 k/uL (150-450); RBC 4.12 m/uL (4.30-5.90); RDW 14.1 % (11.5-15.5)
[2024-02-13 08:45] LABS: African American GFR (CKD) 37 (>60 ml/min/1.73 sqM); Anion Gap 5 mmol/L; Blood Urea Nitrogen 29 mg/dL (9-20); Calcium 8.8 mg/dL (8.4-10.2); Carbon Dioxide 24 mmol/L (22-30); Chloride 110 mmol/L (98-107); Glucose 86 mg/dL (74-99); Non-African American GFR(CKD) 32 (>60 ml/min/1.73 sqM); Sodium 139 mmol/L (137-145)
[2024-02-13] MEDS: FAMOTIDINE 20 MG TAB PO SCH (08:53)
[2024-02-13] MEDS: SODIUM CHLORIDE 0.45% 1,000 ML IV SCH (09:58)
--- NOTE | 2024-02-13 13:16 | P.PN ---
Subjective Progress Note Date: 02/13/24 Principal diagnosis: Acute Kidney Injury Stephen was seen this morning at bedside. Reports doing well feeling better. Denies fever, chills, nausea, vomiting, chest pain, shortness of breath. Objective - Vital Signs Vital signs: Vital Signs Temp 97.4 F L 02/13/24 11:24 Pulse 49 L 02/13/24 11:24 Resp 16 02/13/24 11:24 BP 114/64 02/13/24 11:24 Pulse Ox 100 02/13/24 11:24 FiO2 Intake & Output 02/12/24 02/13/24 02/13/24 18:59 06:59 18:59 Intake Total 360 388 Output Total 3800 3375 1275 Balance -1270 -3375 -887 Weight 66.4 kg Intake: IV 30 Invasive Line 4 20 Invasive Line 5 10 Oral 360 358 Output: Urine 3300 3375 1275 Uretheral (Perez) 1275 Post Void Residual 500 Other: Voiding Method Indwelling Catheter Indwelling Catheter Indwelling Catheter # Voids 1 # Bowel Movements 1 - Exam General: Alert and oriented, not in acute distress Cardiovascular: Regular heart rate, no murmurs Respiratory: Clear to auscultation bilaterally, no wheezing/rhonchi/stridor Abdominal: Soft, nontender, nondistended Extremity: No LE edema - Labs CBC & Chem 7: 02/13/24 07:30 02/13/24 14:56 Labs: Abnormal Lab Results - Last 24 Hours (Table) 02/12/24 02/13/24 02/13/24 Range/Units 15:49 07:30 07:30 RBC 4.12 L (4.30-5.90) m/uL Hgb 12.5 L (13.0-17.5) gm/dL Hct 38.4 L (39.0-53.0) % Sodium 127 L (137-145) mmol/L Chloride 110 H (98-107) mmol/L BUN 29 H (9-20) mg/dL Creatinine 2.11 H (0.66-1.25) mg/dL Assessment and Plan Assessment: 1. Hyponatremia - improved with normal saline, hypovolemic vs euvolemic. Status post D5W to prevent further increase in sodium. Urine sodium less than 20, urine osmolality was 97. TSH was 1.5. History of increased fluid intake. Sodium at 139 today. Given the significantly large urine output I will add half-normal saline to prevent further increase in sodium. 2. Acute kidney injury -ATN from hypotension as well as obstructive uropathy with significant urine retention of about 1 L. Status post Perez catheter placement with postobstructive diuresis noted.. UA was unremarkable. Status post cardiac catheterization 02/11/2024. 3. Mild hyperkalemia - Resolved. Potassium supplement on hold. 4. GERD - Maintained on omeprazole. 5. Coronary artery disease status postcardiac catheterization on 02/11/2024. This was scheduled previously as outpatient. Plan: 1. Start half NS 2. Recheck morning labs. Patient is seen and examined with the resident. Agree with findings, assessment and plan.
--- NOTE | 2024-02-14 02:51 | P.PN ---
Subjective Progress Note Date: 02/12/24 Patient is a 62-year-old male with known history of [place], autistic, anxiety and other medical problems was brought to the ER due to altered mental status. Patient does have developmental delay and lives with his cousin who helps with history. I currently discussed and patient has weak heart and ejection fraction was 30 to 35%. Patient has been having increasingly fatigue. Family heart and noise on the check found he had fallen in the bathroom. Unsure if he lost his consciousness or not.. Chest x-ray on admission showed possible mild congestive heart failure correlate with BNP EKG showed sinus rhythm with sinus arrhythmia CT head showed no acute intracranial process. Patient had outpatient heart catheterization scheduled however when he was found to have significant hyponatremia. As per caregiver patient does drink excess amount of water. Mentation was back to baseline. Patient had cardiac catheterization showed mild CAD with 20% mid LAD, 10 to 20% mid RCA stenosis. Normal left-sided filling pressures. Laboratory data showed WBC 5.1 hemoglobin 0.9 and platelets 160 sodium 115 chloride 85, potassium 3.4 BUN 36 and creatinine 1.4 and blood sugar 112 urinalysis is negative for infection. Patient was given IV hydration with normal saline. 02/12/2024 Patient is resting in the bed. Mental status remains the same. No complaints of chest pain or shortness of breath. Sodium level corrected to 127. Patient was started on D5 water due to rapid correction. Patient able to tolerate oral intake. Laboratory data showed sodium 127 potassium 3.6 chloride 102 bicarb is 22 BUN 36 and creatinine 2.4 and blood sugar 110. Nephrology is on board. Objective - Vital Signs Vital signs: Vital Signs Temp 98.8 F 02/12/24 20:00 Pulse 50 L 02/12/24 20:00 Resp 16 02/12/24 20:00 BP 126/68 02/12/24 20:00 Pulse Ox 100 02/12/24 20:00 FiO2 Intake & Output 02/12/24 02/12/24 02/13/24 06:59 18:59 06:59 Intake Total 360 Output Total 3800 1575 Balance -3440 -1575 Weight 66 kg Intake: Oral 360 Output: Urine 3300 1575 Post Void Residual 500 Other: Voiding Method Toilet Indwelling Catheter Indwelling Catheter # Voids 1 1 - Exam PHYSICAL EXAMINATION: Patient is lying in the bed comfortably, no acute distress, awake alert and oriented 1-2.. HEENT: Normocephalic. Neck is supple. Pupils reactive. Nostrils clear. Oral cavity is moist. Neck reveals no JVD, carotid bruits, or thyromegaly. CHEST EXAMINATION: Trachea is central. Symmetrical expansion. Lung mobley clear to auscultation and percussion. CARDIAC: Normal S1, S2 with no gallops. No murmurs ABDOMEN: Soft. Bowel sounds normal. No organomegaly. No abdominal bruits. Extremities: reveal no edema. No clubbing or cyanosis Neurologically awake, alert, oriented x 1-2 able to move all extremities while in bed. Autistic. No gross focal deficits. Skin: No rash or skin lesions. Psychiatric: Coperative. Could not be assessed completely Musculoskeletal: No joint swelling or deformity. - Labs CBC & Chem 7: 02/13/24 07:30 02/13/24 14:56 Labs: Abnormal Lab Results - Last 24 Hours (Table) 02/11/24 02/11/24 02/12/24 Range/Units 18:02 18:02 04:57 RBC (4.30-5.90) m/uL Hgb (13.0-17.5) gm/dL Hct (39.0-53.0) % Plt Count (150-450) k/uL Lymphocytes # (1.0-4.8) k/uL Sodium 127 L (137-145) mmol/L BUN 36 H (9-20) mg/dL Creatinine 2.40 H (0.66-1.25) mg/dL Glucose 110 H (74-99) mg/dL Calcium 7.9 L (8.4-10.2) mg/dL Urine Osmolality 97 L (400-1100) mOsm/kg Ur Random Sodium <20 L (40-220) mmol/L 02/12/24 02/12/24 02/12/24 Range/Units 04:57 10:39 15:49 RBC 3.68 L (4.30-5.90) m/uL Hgb 11.3 L (13.0-17.5) gm/dL Hct 33.5 L (39.0-53.0) % Plt Count 136 L (150-450) k/uL Lymphocytes # 0.9 L (1.0-4.8) k/uL Sodium 126 L 127 L (137-145) mmol/L BUN (9-20) mg/dL Creatinine (0.66-1.25) mg/dL Glucose (74-99) mg/dL Calcium (8.4-10.2) mg/dL Urine Osmolality (400-1100) mOsm/kg Ur Random Sodium (40-220) mmol/L Assessment and Plan Assessment: Altered mental status and was found on the floor in the bathroom. Cardiomyopathy Ejection fraction 35% as per discussion. Status post cardiac catheterization on 02/11/2024 showed mild CAD. No PCI. Hyponatremia likely hypovolemic Acute kidney injury likely prerenal Acute urinary retention. Placed on Perez catheter. Seen by urology. Mild hyperkalemia on admission resolved now GERD Autism and developmental delay DVT prophylaxis heparin subcu Plan: IV fluids currently on hold. Sodium went up to 126 and due to rapid correction IV fluids changed to D5 waer. Encourage oral intake. Nephrology is on board.. Bladder scan was ordered to blood urinary retention. Patient was seen by urology. Status post Perez catheter placement now. Diuretics on hold. Farxica is on Hold as well. Follow-up renal function. symptomatic management and follow-up closely. Prognosis is guarded. Time with Patient: Greater than 30
--- NOTE | 2024-02-14 02:54 | P.PN ---
Subjective Progress Note Date: 02/13/24 Patient is a 62-year-old male with known history of [place], autistic, anxiety and other medical problems was brought to the ER due to altered mental status. Patient does have developmental delay and lives with his cousin who helps with history. I currently discussed and patient has weak heart and ejection fraction was 30 to 35%. Patient has been having increasingly fatigue. Family heart and noise on the check found he had fallen in the bathroom. Unsure if he lost his consciousness or not.. Chest x-ray on admission showed possible mild congestive heart failure correlate with BNP EKG showed sinus rhythm with sinus arrhythmia CT head showed no acute intracranial process. Patient had outpatient heart catheterization scheduled however when he was found to have significant hyponatremia. As per caregiver patient does drink excess amount of water. Mentation was back to baseline. Patient had cardiac catheterization showed mild CAD with 20% mid LAD, 10 to 20% mid RCA stenosis. Normal left-sided filling pressures. Laboratory data showed WBC 5.1 hemoglobin 0.9 and platelets 160 sodium 115 chloride 85, potassium 3.4 BUN 36 and creatinine 1.4 and blood sugar 112 urinalysis is negative for infection. Patient was given IV hydration with normal saline. 02/12/2024 Patient is resting in the bed. Mental status remains the same. No complaints of chest pain or shortness of breath. Sodium level corrected to 127. Patient was started on D5 water due to rapid correction. Patient able to tolerate oral intake. Laboratory data showed sodium 127 potassium 3.6 chloride 102 bicarb is 22 BUN 36 and creatinine 2.4 and blood sugar 110. Nephrology is on board. 02/13/2024 Patient is currently resting in the bed. Awake alert and mentation is at baseline. Denies any complaints of chest pain or shortness of breath. Patient states that he feels better. Afebrile. No nausea or vomiting. Tolerate oral intake. Otherwise laboratory data showed sodium improved to 139. Started on half-normal saline at 75 cc/h. Nephrology is on board. Renal function is improving with creatinine level 2.11. Other laboratory data reviewed. Current medications reviewed. Objective - Vital Signs Vital signs: Vital Signs Temp 97.5 F L 02/13/24 08:49 Pulse 60 02/13/24 08:49 Resp 16 02/13/24 08:49 BP 109/66 08/02/24 08:49 Pulse Ox 98 02/13/24 08:49 FiO2 Intake & Output 02/12/24 02/13/24 02/13/24 18:59 06:59 18:59 Intake Total 360 388 Output Total 3800 3375 500 Balance -8870 -2885 -112 Weight 66.4 kg Intake: IV 30 Invasive Line 4 20 Invasive Line 5 10 Oral 360 358 Output: Urine 3300 3375 500 Uretheral (Perez) 500 Post Void Residual 500 Other: Voiding Method Indwelling Catheter Indwelling Catheter Indwelling Catheter # Voids 1 # Bowel Movements 1 - Exam PHYSICAL EXAMINATION: Patient is lying in the bed comfortably, no acute distress, awake alert and oriented 1-2.. HEENT: Normocephalic. Neck is supple. Pupils reactive. Nostrils clear. Oral cavity is moist. Neck reveals no JVD, carotid bruits, or thyromegaly. CHEST EXAMINATION: Trachea is central. Symmetrical expansion. Lung mobley clear to auscultation and percussion. CARDIAC: Normal S1, S2 with no gallops. No murmurs ABDOMEN: Soft. Bowel sounds normal. No organomegaly. No abdominal bruits. Extremities: reveal no edema. No clubbing or cyanosis Neurologically awake, alert, oriented x 1-2 able to move all extremities while in bed. Autistic. No gross focal deficits. Skin: No rash or skin lesions. Psychiatric: Coperative. Could not be assessed completely Musculoskeletal: No joint swelling or deformity. - Labs CBC & Chem 7: 02/13/24 07:30 02/13/24 14:56 Labs: Abnormal Lab Results - Last 24 Hours (Table) 02/12/24 02/12/24 02/13/24 Range/Units 10:39 15:49 07:30 RBC 4.12 L (4.30-5.90) m/uL Hgb 12.5 L (13.0-17.5) gm/dL Hct 38.4 L (39.0-53.0) % Sodium 126 L 127 L (137-145) mmol/L Chloride (98-107) mmol/L BUN (9-20) mg/dL Creatinine (0.66-1.25) mg/dL 02/13/24 Range/Units 07:30 RBC (4.30-5.90) m/uL Hgb (13.0-17.5) gm/dL Hct (39.0-53.0) % Sodium (137-145) mmol/L Chloride 110 H (98-107) mmol/L BUN 29 H (9-20) mg/dL Creatinine 2.11 H (0.66-1.25) mg/dL Assessment and Plan Assessment: Altered mental status and was found on the floor in the bathroom. Cardiomyopathy Ejection fraction 35% as per discussion. Status post cardiac catheterization on 02/11/2024 showed mild CAD. No PCI. Hyponatremia likely hypovolemic Acute kidney injury likely prerenal and postobstructive. Improving. Acute urinary retention. Placed on Perez catheter. Seen by urology. Mild hyperkalemia on admission resolved now GERD Autism and developmental delay DVT prophylaxis heparin subcu Plan: Patient is currently on half-normal saline. Encourage oral intake. Nephrology and urology is on board.. Status post Perez catheter placement due to urinary retention.. Diuretics on hold. Farxica is on Hold as well. Follow-up renal function. symptomatic management and follow-up closely. Prognosis is guarded. Anticipate discharge back in the next 24 to 48 hours with improvement in renal function and stable sodium level. Time with Patient: Greater than 30
[2024-02-14 10:14] LABS: African American GFR (CKD) 56 (>60 ml/min/1.73 sqM); Anion Gap 1 mmol/L; Blood Urea Nitrogen 20 mg/dL (9-20); Calcium 8.4 mg/dL (8.4-10.2); Carbon Dioxide 28 mmol/L (22-30); Chloride 107 mmol/L (98-107); Glucose 141 mg/dL (74-99); Non-African American GFR(CKD) 49 (>60 ml/min/1.73 sqM); Potassium 3.5 mmol/L (3.5-5.1); Sodium 136 mmol/L (137-145)
--- NOTE | 2024-02-14 11:17 | P.PN ---
Subjective patient is seen for follow-up for hyponatremia. Sodium has improved. Patient had significant urine retention and currently with indwelling Perez cat heter. He has had postobstructive diuresis. Currently maintained on half normal saline. Serum sodium is 136 today. 24 hour urine documented at 3.8 L which is improved from 6.6 L the day before. Objective - Vital Signs Vital signs: Vital Signs Temp 97.5 F L 02/14/24 08:00 Pulse 65 02/14/24 08:00 Resp 18 02/14/24 08:00 BP 94/53 02/14/24 08:00 Pulse Ox 99 02/14/24 08:00 FiO2 Intake & Output 02/13/24 02/14/24 02/14/24 18:59 06:59 18:59 Intake Total 2481 100 Output Total 2075 1800 Balance 406 -1800 100 Weight 73 kg Intake: IV 30 Invasive Line 4 20 Invasive Line 5 10 Intake, IV Titration 675 Amount Sodium Chloride 0.45% 1, 675 000 ml @ 75 mls/hr IV . [id number] [facility] Rx#:[id number] Oral 1776 100 Output: Urine 2074 1800 Uretheral (Perez) 2075 1000 Other: Voiding Method Indwelling Catheter Indwelling Catheter # Voids 0 # Bowel Movements 1 1 1 - Exam General: Alert and oriented, not in acute distress Cardiovascular: Regular heart rate, no murmurs Respiratory: Clear to auscultation bilaterally, no wheezing/rhonchi/stridor Abdominal: Soft, nontender, nondistended Extremity: No LE edema - Labs CBC & Chem 7: 02/13/24 07:30 02/14/24 09:22 Labs: Abnormal Lab Results - Last 24 Hours (Table) 02/14/24 Range/Units 09:22 Sodium 136 L (137-145) mmol/L Creatinine 1.49 H (0.66-1.25) mg/dL Glucose 141 H (74-99) mg/dL Assessment and Plan Assessment: 1. Hyponatremia - improved with normal saline, hypovolemic vs euvolemic. Status post D5W to prevent further increase in sodium. Urine sodium less than 20, urine osmolality was 97. TSH was 1.5. History of increased fluid intake. I we'll change IV fluids to normal saline as urine output is not as high as the day before. 24 hour urine documented at 3.8 L which is improved from 6.6 L the day before. 2. Acute kidney injury -ATN from hypotension as well as obstructive uropathy with significant urine retention of about 1 L. Status post Perez catheter placement with postobstructive diuresis noted.. UA was unremarkable. Status post cardiac catheterization 02/11/2024. 3. Mild hyperkalemia - Resolved. Potassium supplement on hold. 4. GERD - Maintained on omeprazole. 5. Coronary artery disease status postcardiac catheterization on 02/11/2024. This was scheduled previously as outpatient. Plan: change IV fluids to normal saline and repeat labs in a.m.
[2024-02-14] MEDS: SODIUM CHLORIDE 0.9% 1,000 ML IV SCH (12:09)
--- NOTE | 2024-02-14 16:55 | P.PN ---
Subjective Progress Note Date: 02/14/24 Interval History: Patient is a 62-year-old male with known history of [place], autistic, anxiety and other medical problems was brought to the ER due to altered mental status. Patient does have developmental delay and lives with his cousin who helps with history. I currently discussed and patient has weak heart and ejection fraction was 30 to 35%. Patient has been having increasingly fatigue. Family heart and noise on the check found he had fallen in the bathroom. Unsure if he lost his consciousness or not.. Chest x-ray on admission showed possible mild congestive heart failure correlate with BNP EKG showed sinus rhythm with sinus arrhythmia CT head showed no acute intracranial process. Patient had outpatient heart catheterization scheduled however when he was found to have significant hyponatremia. As per caregiver patient does drink excess amount of water. Mentation was back to baseline. Patient had cardiac catheterization showed mild CAD with 20% mid LAD, 10 to 20% mid RCA stenosis. Normal left-sided filling pressures. Laboratory data showed WBC 5.1 hemoglobin 0.9 and platelets 160 sodium 115 chloride 85, potassium 3.4 BUN 36 and creatinine 1.4 and blood sugar 112 urinalysis is negative for infection. Patient was given IV hydration with normal saline. 02/12/2024 Patient is resting in the bed. Mental status remains the same. No complaints of chest pain or shortness of breath. Sodium level corrected to 127. Patient was started on D5 water due to rapid correction. Patient able to tolerate oral intake. Laboratory data showed sodium 127 potassium 3.6 chloride 102 bicarb is 22 BUN 36 and creatinine 2.4 and blood sugar 110. Nephrology is on board. 02/13/2024 Patient is currently resting in the bed. Awake alert and mentation is at baseline. Denies any complaints of chest pain or shortness of breath. Patient states that he feels better. Afebrile. No nausea or vomiting. Tolerate oral intake. Otherwise laboratory data showed sodium improved to 139. Started on half-normal saline at 75 cc/h. Nephrology is on board. Renal function is improving with creatinine level 2.11. Other laboratory data reviewed. Patient was seen and examined today. Sodium is improved. Patient continues to have indwelling Perez's catheter for urinary retention. Patient later on had postobstructive diuresis. Serum sodium 136 today. Nephrology following, change IV fluids to normal saline, plan to repeat labs tomorrow morning. Assessment and plan: Altered mental status and was found on the floor in the bathroom. Cardiomyopathy Ejection fraction 35% as per discussion. Status post cardiac catheterization on 02/11/2024 showed mild CAD. No PCI. Hyponatremia likely hypovolemic Acute kidney injury likely prerenal and postobstructive. Improving. Acute urinary retention. Placed on Perez catheter. Seen by urology. Mild hyperkalemia on admission resolved now GERD Autism and developmental delay Plan: Patient is currently on half-normal saline. Encourage oral intake. Nephrology and urology is on board.. Status post Perez catheter placement due to urinary retention.. Diuretics on hold. Farxiga is on Hold as well. Follow-up renal function. symptomatic management and follow-up closely. Nephrology following, continued on 75 mL/h normal saline. DVT prophylaxis: Subtenons heparin PHYSICAL EXAMINATION: GENERAL:NAD HEENT: EOMI, Sclerae anicteric, Moist Mucous membranes Neck: Supple, Non tender, No JVD CARDIOVASCULAR: S1, S2 present. No murmurs, rubs, or gallops. PULMONARY: Equal breath souds B/L, No wheezing, No crackles. ABDOMEN: Soft, nontender, nondistended, normoactive bowel sounds. No guarding or rebound tenderness. MUSCULOSKELETAL: No edema, No cyanosis. No clubbing. Normal ROM. Intact peripheral pulses. Skin; Warm. No rash. REVIEW OF SYSTEMS: Limited CONSTITUTIONAL: No fever or chills. CARDIOVASCULAR: No chest pain, palpitations or syncope. PULMONARY: No shortness of breath, no cough, sore throat. GASTROINTESTINAL: No nausea, vomiting, diarrhea, abdominal pain. : No Dysuria, urgency, frequency. Extremities: No edema. NEUROLOGICAL: No headaches, no weakness, or numbness Dictation was produced using [employer] dictation software. please excuse any grammatical, word or spelling errors. Objective - Vital Signs Vital signs: Vital Signs Temp 97.8 F 02/14/24 15:25 Pulse 50 L 02/14/24 15:25 Resp 18 02/14/24 15:25 BP 117/67 02/14/24 15:25 Pulse Ox 98 02/14/24 15:25 FiO2 Intake & Output 02/13/24 02/14/24 02/14/24 18:59 06:59 18:59 Intake Total 2481 218 Output Total 5 1800 500 Balance 406 -1800 -282 Weight 73 kg Intake: IV 30 Invasive Line 4 20 Invasive Line 5 10 Intake, IV Titration 675 Amount Sodium Chloride 0.45% 1, 675 000 ml @ 75 mls/hr IV . [id number] [facility] Rx#:[id number] Oral 1776 218 Output: Urine 5 1800 500 Uretheral (Perez) 2075 1000 Other: Voiding Method Indwelling Catheter Indwelling Catheter Toilet # Voids 0 # Bowel Movements 1 1 1 - Labs CBC & Chem 7: 02/13/24 07:30 02/14/24 09:22 Labs: Abnormal Lab Results - Last 24 Hours (Table) 02/14/24 Range/Units 09:22 Sodium 136 L (137-145) mmol/L Creatinine 1.49 H (0.66-1.25) mg/dL Glucose 141 H (74-99) mg/dL
[2024-02-14 19:46] VITALS: RESP 16
[2024-02-15 07:41] LABS: Basophils % (A) 0 %; Eosinophils # (A) 0.2 k/uL (0-0.7); Eosinophils % (A) 3 %; HCT 33.6 % (39.0-53.0); Lymphocytes # (A) 1.4 k/uL (1.0-4.8); Lymphocytes % (A) 31 %; MCH 30.8 pg (25.0-35.0); MCHC 32.7 g/dL (31.0-37.0); MCV 94.1 fL (80.0-100.0); Mean Platelet Volume 7.8; Monocytes # (A) 0.4 k/uL (0-1.0); Monocytes % (A) 8 %; Neutrophils # (A) 2.5 k/uL (1.3-7.7); Neutrophils % (A) 55 %; Platelet Count 155 k/uL (150-450); RBC 3.57 m/uL (4.30-5.90); WBC 4.5 k/uL (3.8-10.6)
[2024-02-15 07:58] LABS: African American GFR (CKD) 56 (>60 ml/min/1.73 sqM); Anion Gap -1 mmol/L; Blood Urea Nitrogen 19 mg/dL (9-20); Calcium 8.3 mg/dL (8.4-10.2); Carbon Dioxide 30 mmol/L (22-30); Chloride 109 mmol/L (98-107); Glucose 84 mg/dL (74-99); Non-African American GFR(CKD) 48 (>60 ml/min/1.73 sqM); Potassium 4.7 mmol/L (3.5-5.1); Sodium 138 mmol/L (137-145)
[2024-02-15 11:10] VITALS: BP 125/61; PULSE 50; TEMP 97.5
--- NOTE | 2024-02-15 12:31 | P.PN ---
Subjective patient is seen for follow-up for hyponatremia. Sodium has improved and it is 138 today. Patient had significant urine retention and currently with indwelling Perez catheter. He has had postobstructive diuresis. status post D5W and half normal saline to prevent rapid increase in sodium due to significant postobstructive diuresis initially. This has improved now and patient is currently maintained on normal saline at 75 mL an hour. No complaints today. Tolerating oral intake. Objective - Vital Signs Vital signs: Vital Signs Temp 97.5 F L 02/15/24 11:07 Pulse 50 L 02/15/24 11:07 Resp 16 02/15/24 11:07 BP 125/61 02/15/24 11:07 Pulse Ox 100 02/15/24 11:07 FiO2 Intake & Output 02/14/24 02/15/24 02/15/24 18:59 06:59 18:59 Intake Total 336 1140 Output Total 500 1750 500 Balance -164 -1750 640 Intake: Intake, IV Titration 900 Amount Sodium Chloride 0.45% 1, 900 000 ml @ 75 mls/hr IV . [id number] [facility] Rx#:[id number] Oral 336 240 Output: Urine 500 1750 500 Other: Voiding Method Toilet Toilet Toilet # Voids 0 1 # Bowel Movements 1 - Exam General: Alert and oriented, not in acute distress Cardiovascular: Regular heart rate, no murmurs Respiratory: Clear to auscultation bilaterally, no wheezing/rhonchi/stridor Abdominal: Soft, nontender, nondistended Extremity: No LE edema - Labs CBC & Chem 7: 02/15/24 07:03 02/15/24 07:03 Labs: Abnormal Lab Results - Last 24 Hours (Table) 02/15/24 02/15/24 Range/Units 07:03 07:03 RBC 3.57 L (4.30-5.90) m/uL Hgb 11.0 L (13.0-17.5) gm/dL Hct 33.6 L (39.0-53.0) % Chloride 109 H (98-107) mmol/L Creatinine 1.51 H (0.66-1.25) mg/dL Calcium 8.3 L (8.4-10.2) mg/dL Assessment and Plan Assessment: 1. Hyponatremia - improved with normal saline, hypovolemic vs euvolemic. Urine sodium less than 20, urine osmolality was 97. TSH was 1.5. History of increased fluid intake. Status post D5W and half normal saline to prevent rapid increase in serum sodium due to postobstructive diuresis. Currently maintained on normal saline and sodium is 138 today. 2. Acute kidney injury -ATN from hypotension as well as obstructive uropathy with significant urine retention of about 1 L. Status post Perez catheter placement with postobstructive diuresis noted.. UA was unremarkable. Status post cardiac catheterization 02/11/2024. 3. Mild hyperkalemia - Resolved. Potassium supplement on hold. 4. GERD - Maintained on omeprazole. 5. Coronary artery disease status postcardiac catheterization on 02/11/2024. This was scheduled previously as outpatient. Plan: continue with normal saline and repeat labs in a.m.
--- NOTE | 2024-02-15 13:43 | P.DS ---
Providers Date of admission: 02/11/24 00:09 Expected date of discharge: 02/15/24 Attending physician: Stanley Vegas Consults: 02/11/24 10:53 Consult Physician Routine Consulting Provider: Alvarez Carrasquillo Consult Reason/Comments: Hyponatremia Do you want consulting provider notified?: Yes 02/12/24 15:24 Consult Physician Routine Consulting Provider: Elias Small Consult Reason/Comments: retention/enlarged prostate Do you want consulting provider notified?: Yes Primary care physician: [facility] Course: Discharge diagnoses: Altered mental status and was found on the floor in the bathroom. Cardiomyopathy Ejection fraction 35% as per discussion. Status post cardiac catheterization on 02/11/2024 showed mild CAD. No PCI. Hyponatremia likely hypovolemic: Resolved Acute kidney injury likely prerenal and postobstructive. Improving. Acute urinary retention. Seen by urology, had Perez's catheter initially, which was later on discontinued, passed trial of voiding. Mild hyperkalemia on admission resolved now GERD Autism and developmental delay Plan: Patient was treated with IV fluids, renal function and sodium was monitored, s odium improved, creatinine improving. Was evaluated by urology, initially had Perez's catheter for urine retention, which later on removed, patient passed trial of voiding. Nephrology consulted treated with IV fluids. Cardiology also consulted, underwent cardiac catheterization which showed mild coronary artery disease, continue on aspirin and statin at discharge. Farxiga and Lasix held on discharge for 1 week until repeat BMP checked by PCP. Follow-up with PCP in 1 week. Follow-up with urology nephrology and cardiology as outpatient. Hospital course: Patient is a 62-year-old male with known history of [place], autistic, anxiety and other medical problems was brought to the ER due to altered mental status. Patient does have developmental delay and lives with his cousin who helps with history. I currently discussed and patient has weak heart and ejection fraction was 30 to 35%. Patient has been having increasingly fatigue. Family heart and noise on the check found he had fallen in the bathroom. Unsure if he lost his consciousness or not.. Chest x-ray on admission showed possible mild congestive heart failure correlate with BNP EKG showed sinus rhythm with sinus arrhythmia CT head showed no acute intracranial process. Patient had outpatient heart catheterization scheduled however when he was found to have significant hyponatremia. As per caregiver patient does drink excess amount of water. Mentation was back to baseline. Patient had cardiac catheterization showed mild CAD with 20% mid LAD, 10 to 20% mid RCA stenosis. Normal left-sided filling pressures. Laboratory data showed WBC 5.1 hemoglobin 0.9 and platelets 160 sodium 115 chloride 85, potassium 3.4 BUN 36 and creatinine 1.4 and blood sugar 112 urinalysis is negative for infection. Patient was given IV hydration with normal saline. 02/12/2024 Patient is resting in the bed. Mental status remains the same. No complaints of chest pain or shortness of breath. Sodium level corrected to 127. Patient was started on D5 water due to rapid correction. Patient able to tolerate oral intake. Laboratory data showed sodium 127 potassium 3.6 chloride 102 bicarb is 22 BUN 36 and creatinine 2.4 and blood sugar 110. Nephrology is on board. 02/13/2024 Patient is currently resting in the bed. Awake alert and mentation is at baseline. Denies any complaints of chest pain or shortness of breath. Patient states that he feels better. Afebrile. No nausea or vomiting. Tolerate oral intake. Otherwise laboratory data showed sodium improved to 139. Started on half-normal saline at 75 cc/h. Nephrology is on board. Renal function is improving with creatinine level 2.11. Other laboratory data reviewed. Patient was seen and examined today. Sodium is improved. Patient continues to have indwelling Perez's catheter for urinary retention. Patient later on had postobstructive diuresis. Serum sodium 136 today. Nephrology following, change IV fluids to normal saline, plan to repeat labs tomorrow morning.02/15/24 02/15/2024 Patient feeling better today. Creatinine remained stable at 1.5. Patient voiding without difficulty since Perez's catheter removed yesterday. Sodium is also stable 138. Per nephrology okay to discharge. Please refer to medical assessment for further details. Patient condition vital stable at discharge. PHYSICAL EXAMINATION: GENERAL: NAD HEENT: EOMI, Sclerae anicteric, Moist Mucous membranes Neck: Supple, Non tender, No JVD PULMONARY: Equal breath souds B/L, No wheezing, No crackles. CARDIOVASCULAR: S1, S2 present. No murmurs, rubs, or gallops. ABDOMEN: Soft, nontender, nondistended, normoactive bowel sounds. No guarding or rebound tenderness. MUSCULOSKELETAL: No edema, No cyanosis. No clubbing. Normal ROM. Intact peripheral pulses. EXTREMITIES: No cyanosis, clubbing, or pedal edema. NEUROLOGICAL: CN 2-12 grossly intact. No FND SKIN: No rashes. Dictation was produced using [employer] dictation software. please excuse any grammatical, word or spelling errors. Patient Condition at Discharge: Fair Plan - Discharge Summary Discharge Rx Participant: No New Discharge Prescriptions: New Tamsulosin [Flomax] 0.4 mg PO DAILY #30 cap Atorvastatin [Lipitor] 40 mg PO HS #30 tablet Continue Potassium Chloride ER [K-Dur 20] 20 meq PO DAILY Cetirizine HCl 10 mg PO HS Cholecalciferol [Vitamin D3 (10 Mcg = 400 Iu)] 10 mcg PO DAILY Omeprazole 20 mg PO DAILY Calcium Citrate/Vitamin D3 [Citracal + D Maximum Caplet] 2 tab PO DAILY Aspirin [Adult Low Dose Aspirin EC] 81 mg PO DAILY Citalopram Hydrobromide [Citalopram HBr] 20 mg PO DAILY Nitroglycerin Sl Tabs [Nitrostat] 0.4 mg SL Q5M PRN PRN Reason: Chest Pain QUEtiapine FUMARATE [SEROquel] 300 mg PO HS Discontinued Empagliflozin [Jardiance] 10 mg PO DAILY Furosemide [Lasix] 40 mg PO DAILY Discharge Medication List Aspirin [Adult Low Dose Aspirin EC] 81 mg PO DAILY 03/29/21 [History] Calcium Citrate/Vitamin D3 [Citracal + D Maximum Caplet] 2 tab PO DAILY 03/29/21 [History] Cetirizine HCl 10 mg PO HS 03/29/21 [History] Omeprazole 20 mg PO DAILY 03/29/21 [History] Potassium Chloride ER [K-Dur 20] 20 meq PO DAILY 03/29/21 [History] Citalopram Hydrobromide [Citalopram HBr] 20 mg PO DAILY 02/10/24 [History] Nitroglycerin Sl Tabs [Nitrostat] 0.4 mg SL Q5M PRN 02/10/24 [History] Cholecalciferol [Vitamin D3 (10 Mcg = 400 Iu)] 10 mcg PO DAILY 02/11/24 [History] QUEtiapine FUMARATE [SEROquel] 300 mg PO HS 02/11/24 [History] Atorvastatin [Lipitor] 40 mg PO HS #30 tablet 02/15/24 [Rx] Tamsulosin [Flomax] 0.4 mg PO DAILY #30 cap 02/15/24 [Rx] Follow up Appointment(s)/Referral(s): Song Burr DO [Primary Care Provider] - 1-2 days (Offices are closed at this time. Please call to make a post hospital follow up appointment when offices are open tomorrow.) Zack Traore DO [STAFF PHYSICIAN] - 1 Week Josue Delgado MD [STAFF PHYSICIAN] - 1 Week Patient Instructions/Handouts: Hyponatremia (DC) Activity/Diet/Wound Care/Special Instructions: Hold Lasix and Empagliflozin for 1 week until your repeat BMP checked by your family doctor. Follow-up with your PCP within 1 week and get your labs for kidney function checked prior to starting Lasix and Empagliflozin. Discharge Disposition: HOME SELF-CARE
== END 2024-02-15 14:32 | disposition home or self-care (01) | DRG 640 ==
LOC: EC 20:42 → 3SCARD 02-11 00:09
PROVIDERS: ADMIT Hospitalist; ATTEND Hospitalist
PROC: B2111ZZ Fluoroscopy of Multiple Coronary Arteries using Low Osmolar Contrast (ICD-10-PCS; principal; 2024-02-11 07:30)
PROC: 4A023N7 Measurement of Cardiac Sampling and Pressure, Left Heart, Percutaneous Approach (ICD-10-PCS; principal; 2024-02-11 07:30)
PROC: B2151ZZ Fluoroscopy of Left Heart using Low Osmolar Contrast (ICD-10-PCS; principal; 2024-02-11 07:30)
DX: E87.1 Hypo-osmolality and hyponatremia (principal); N17.0 Acute kidney failure with tubular necrosis; F84.0 Autistic disorder; I42.9 Cardiomyopathy, unspecified; N13.8 Other obstructive and reflux uropathy; I25.10 Atherosclerotic heart disease of native coronary artery without angina pectoris; I25.2 Old myocardial infarction; F79 Unspecified intellectual disabilities; E87.5 Hyperkalemia; R33.8 Other retention of urine; I50.9 Heart failure, unspecified; I95.9 Hypotension, unspecified; Z79.82 Long term (current) use of aspirin; Z83.3 Family history of diabetes mellitus; E86.1 Hypovolemia; F41.9 Anxiety disorder, unspecified; K21.9 Gastro-esophageal reflux disease without esophagitis; N40.1 Benign prostatic hyperplasia with lower urinary tract symptoms; Z79.84 Long term (current) use of oral hypoglycemic drugs; Z79.899 Other long term (current) drug therapy; Z82.49 Family history of ischemic heart disease and other diseases of the circulatory system
CPT/HCPCS: 36415; 70450; 71046; 80048; 80053; 80306; 80320; 81003; 82140; 83935; 84295; 84300; 84443; 84484; 85025; 85610; 85730; 93005; 93458; 94760

== ENCOUNTER → 2024-02-17 | Outpatient (CLI) | payer MEDICARE, OTHER | END | disposition home or self-care (01) | LOC: LABPRL 11:10 | PROVIDERS: ATTEND Family Medicine | DX: I25.10 Atherosclerotic heart disease of native coronary artery without angina pectoris (principal) | CPT/HCPCS: 80048 ==

== ENCOUNTER → 2024-09-24 | Outpatient (CLI) | payer MEDICARE, OTHER ==
[2024-09-24 15:32] LABS: BUN/Creat Ratio 23.71 Ratio (12.00-20.00); Blood Urea Nitrogen 33.2 mg/dL (9.0-27.0); Calcium 9.4 mg/dL (8.7-10.3); Carbon Dioxide 24.1 mmol/L (21.6-31.8); Chloride 103 mmol/L (96-109); Glucose 90 mg/dL (70-110); Potassium 4.4 mmol/L (3.5-5.5); Sodium 140 mmol/L (135-145)
[2024-09-24 16:29] LABS: NT-Pro-B-Type Natriuretic Pept 410 pg/mL (0-125)
== END | disposition home or self-care (01) ==
LOC: LABWHC1 10:03
PROVIDERS: ATTEND Internal Medicine
DX: I50.22 Chronic systolic (congestive) heart failure (principal); R60.0 Localized edema
CPT/HCPCS: 36415; 80048; 83880